=== PATIENT | female | born 1965 | race Caucasian/White ===

== ENCOUNTER 2021-09-19 16:00 | Outpatient (RCR) | payer BC, SELFPAY | END 2021-10-12 14:26 | disposition home or self-care (01) | LOC: PT.CARL 16:00 | PROVIDERS: Visit Provider Orthopaedic Surgery | DX: M25.512 Pain in left shoulder (principal) | CPT/HCPCS: 20560; 97010; 97014; 97033; 97035; 97110; 97163; 97530; G0283 ==

== ENCOUNTER → 2022-05-23 08:46 | Outpatient (POV) | payer BC, SELFPAY | PROVIDERS: Visit Provider Dermatology | DX: Z00.00 Encounter for general adult medical examination without abnormal findings (principal) ==

== ENCOUNTER 2022-09-25 14:00 | Outpatient (RCR) | payer BC, SELFPAY | END 2022-11-01 07:25 | disposition home or self-care (01) | LOC: PT 14:00 | PROVIDERS: Visit Provider Physician Assistant | DX: M24.151 Other articular cartilage disorders, right hip (principal) | CPT/HCPCS: 20560; 97010; 97014; 97033; 97035; 97110; 97163; 97530; G0283 ==

== ENCOUNTER 2022-11-18 16:22 | Emergency (ER) | payer BC, SELFPAY ==
[2022-11-18 16:23] VITALS: BP 119/71; PULSE 87; RESP 18; TEMP 36.6; O2SAT 99; BMI 29.2
--- NOTE | 2022-11-18 16:32 | EXP.UTC ---
Discharge Plan Disposition Patient Disposition: Home, Self-Care Condition: Good Prescriptions Prescriptions: New sulfamethoxazole-trimethoprim [Bactrim DS] 800-160 mg Tablet 1 tab PO BID Qty: 20 0RF cephalexin 500 mg capsule 500 mg PO QID Qty: 40 0RF mupirocin 2 % ointment 1 applic topical TID 7 Days Qty: 15 0RF Referrals Follow up/Referrals: Lenka Sullivan [Primary Care Provider] - See instructions Activity Restrictions/Add. Instructions Additional Instructions/Restrictions: Soak the finger in warm epsom salts water three or four times per day for 10 to 15 minutes as tolerated for the next few days. Take the antibiotics as directed. Apply the topical antibiotic ointment as directed. Follow up with your regular doctor. Clinical Impressions Clinical Impression: Paronychia of right middle finger Instructions Patient Instructions: CADY Arredondo for Paronychia Discharge ED Provider[place] Balbir Simpson [facility] [place] General Stated complaint: Right middle finger infection Time Seen by Provider: 11/18/22 16:31 History of Present Illness Provider Complaint: She states that for the past 1 week she has had an infected area in the medial fold of her right middle finger. She has localized swelling and redness. She denies any fever/chills/malaise. She is not a diabetic. Related Data Previous Rx's Medication Instructions Recorded cephalexin 500 mg capsule 500 mg PO QID #40 caps 11/18/22 mupirocin 2 % topical ointment 1 applic topical TID 7 days #15 11/18/22 grams sulfamethoxazole 800 1 tab PO BID #20 tabs 11/18/22 mg-trimethoprim 160 mg tablet (Bactrim DS) Allergies Allergy/AdvReac Type Severity Reaction Status Date / Time No Known Allergies Allergy Verified 11/18/22 16:40 [facility] Disclaimer: The information contained in this section may have been updated after the patient was seen, as this information can be updated by other users. Social History Smoking Status: Never smoker alcohol intake: never current occupational status: employed Travel in the last 8 weeks: None ROS Obtained: Yes All systems reviewed & no additional complaints except as documented Constitutional Constitutional: Denies chills and Denies fever(s) Eyes Eyes: Denies eye discharge ENT Ears, Nose, Mouth, and Throat: Denies dizziness, Denies otalgia and Denies sore throat Cardiovascular Cardiovascular: Denies chest pain Respiratory Respiratory: Denies shortness of breath, Denies chest congestion, Denies cough, Denies stridor and Denies wheezing Gastrointestinal Gastrointestingal: Denies nausea or vomiting Musculoskeletal Musculoskeletal: Reports system reviewed and no additional complaints, except as documented and Denies arthralgias Integumentary/Breasts Skin/Breast: Reports as per HPI Neurologic Neurologic: Denies dizziness and Denies paresthesias Allergic/Immunologic Allergic/Immunologic: Denies wheezing Physical Exam General General appearance: alert and in no apparent distress Head Head exam: atraumatic, normocephalic and normal inspection Eye Eye exam: Present normal appearance, PERRL and EOMI ENT ENT exam: Present normal exam, normal oropharynx, mucous membranes moist, TM's normal bilaterally and normal external ear exam Neck Neck exam: Present normal inspection, full ROM and trachea midline; Absent meningismus or lymphadenopathy Chest Chest inspection: Present normal inspection and symmetric chest wall rise; Absent tenderness Respiratory Respiratory exam: Present normal lung sounds bilaterally; Absent respiratory distress Cardiovascular Cardiovascular exam: Present regular rate and normal rhythm; Absent JVD Abdominal Exam Abdominal exam: Present soft and normal bowel sounds; Absent distention, tenderness or guarding Extremities Exam Extremities exam: Present normal inspection, full ROM and normal capillary refill; Absent calf tenderness Back
[2022-11-18 17:47] VITALS: BP 119/71; PULSE 87; RESP 18; TEMP 36.6; O2SAT 99
== END 2022-11-18 17:48 | disposition home or self-care (01) ==
PROVIDERS: Emergency Provider Nurse Practitioner Family; PCP Family Medicine
DX: L03.011 Cellulitis of right finger (principal)
CPT/HCPCS: 96372; 99204; 99212; G0463; J0696

== ENCOUNTER → 2023-04-03 07:52 | Outpatient (POV) | payer BC, SELFPAY | PROVIDERS: Visit Provider Dermatology | DX: Z00.00 Encounter for general adult medical examination without abnormal findings (principal) ==